=== PATIENT | female | born 1985 | race Caucasian/White ===

== ENCOUNTER 2016-04-27 23:40 | Emergency (ER) | payer OTHER ==
[~2016-04-27] VITALS: Ht 160 cm; Wt 52.2 kg
[2016-04-28] MEDS ORDERED: IV NS 0.9% 1,000 ML ONE (00:48)
[2016-04-28] MEDS ORDERED: IV SET PRIMARY 1 EA INFUS.SET MC ONE (00:48)
[2016-04-28 00:57] LABS: ADD UA MICROSCOPIC NO; KETONES,URINE NEGATIVE (NEGATIVE); LEUKOCYTE ESTERASE ,URINE NEGATIVE (NEGATIVE)
[2016-04-28 01:00] LABS: BASOPHILS # (AUTO) 0.1 /CMM (0.0-0.2); BASOPHILS % (AUTO) 0.8 % (0.0-2.0); DIFF TOTAL % 100 %; EOSINOPHILS # (AUTO) 0.2 /CMM (0.0-0.7); EOSINOPHILS % (AUTO) 2.1 % (0.0-6.0); HEMATOCRIT 41 % (33-45); LYMPHOCYTES # (AUTO) 2.8 /CMM (0.8-4.8); LYMPHOCYTES % (AUTO) 33.9 % (20.0-44.0); MEAN CORPUSCULAR HEMOGLOBIN 31 PG (26.0-33.0); MEAN CORPUSCULAR HGB CONC 34 g/dl (31.0-36.0); MEAN CORPUSCULAR VOLUME 93 fL (82-100); MONOCYTES # (AUTO) 0.7 /CMM (0.1-1.30); MONOCYTES % (AUTO) 9.1 % (2.0-12.0); NEUTROPHILS # (AUTO) 4.4 /CMM (1.8-8.9); NEUTROPHILS % (AUTO) 54.1 % (43.0-81.0); PLATELET COUNT (AUTO) 332 /CMM (150-450); RED BLOOD CELL COUNT(AUTO) 4.46 MIL/uL (4.0-5.2); WHITE BLOOD COUNT (AUTO) 8.1 K/uL (4.3-11.0)
[2016-04-28] MEDS ORDERED: IV NS 0.9% 1,000 ML BAG IV ONE (01:00)
[2016-04-28 01:04] LABS: CREATININE 0.8 mg/dL (0.6-1.3); POTASSIUM 4.1 mmol/L (3.5-5.1)
[2016-04-28 01:10] LABS: ALBUMIN 4.4 g/dL (3.4-5.0); BILIRUBIN,DIRECT 0.1 mg/dL (0.0-0.2); BILIRUBIN,TOTAL 0.3 mg/dL (0.2-1.0); INDIRECT BILIRUBIN 0.2 mg/dL (0.0-1.1); TOTAL PROTEIN, SERUM 7.4 g/dL (6.4-8.2)
[2016-04-28 02:38] VITALS: BP 108/64
== END 2016-04-28 02:39 | disposition home or self-care (01) ==
LOC: ER 23:40
DX: R19.7 Diarrhea, unspecified (principal)
CPT/HCPCS: 36415; 74176; 80048; 80076; 81001; 83690; 84703; 85025; 96360; 99285; A4606; J7030; Z7610; 81000-TC

== ENCOUNTER 2021-11-13 02:36 | Emergency (ER) | payer OTHER ==
[~2021-11-13] VITALS: Ht 160 cm; Wt 56.7 kg
--- NOTE | 2021-11-13 03:18 | NUR ---
BIBFAMILY. TO ER BED 10. AAOX4. NOT IN RESP DISTRESS, BREATHING EVEN AND UNLABORED. SATTING @ 100%. TALKING IN FULL SENTENCES. AMBULATORY. CAME IN FOR DIFICULTY BREATHING, L& R CHEST PAIN RADIAITING TO BACK, FACE AND BILAT HAND NUMBENESS X 2300. PT IS NOTED ANXIOUS. PT IS CONNECTED TO MONITOR. MD WAS AT THE BEDSIDE. AWAITING ORDERS
[2021-11-13] MEDS ORDERED: LORA-259 PO (03:21)
--- NOTE | 2021-11-13 03:30 | NUR ---
Patient discharged to home in stable condition. Written and verbal after care instructions given. Patient verbalizes understanding of instruction. Pt ambulatory with a steady gait
[2021-11-13 03:31] VITALS: BP 122/74
== END 2021-11-13 03:31 | disposition home or self-care (01) ==
LOC: ER 02:59
DX: F41.9 Anxiety disorder, unspecified (principal); F17.200 Nicotine dependence, unspecified, uncomplicated; Z79.899 Other long term (current) drug therapy